=== PATIENT | male | born 1980 | race Caucasian/White ===

== ENCOUNTER 2018-12-10 17:00 | Emergency (ER) | payer OTHER ==
[2018-12-10] MEDS: ACETAMINOPHEN 325 MG TAB PO (19:27)
[2018-12-10] MEDS: IBUPROFEN 600 MG TAB PO (19:27)
== END 2018-12-10 21:26 | disposition home or self-care (01) ==
LOC: FTE 17:00
DX: S29.9XXA Unspecified injury of thorax, initial encounter (principal); W50.0XXA Accidental hit or strike by another person, initial encounter; Y92.310 Basketball court as the place of occurrence of the external cause
CPT/HCPCS: 71100; 99283-25